=== PATIENT | male | born 1965 | race Caucasian/White ===

== ENCOUNTER 2018-05-04 19:54 | Emergency (ER) | payer BC ==
[~2018-05-04] VITALS: Ht 182.9 cm; Wt 86.2 kg
[2018-05-04] MEDS ORDERED: TRIUMEQ (20:18)
[2018-05-04] MEDS ORDERED: IBUPROFEN600 MG ORAL (21:04)
[2018-05-04 21:39] VITALS: BP 124/79
--- NOTE | 2018-05-04 22:06 | Emergency Room Report ---
History of Present Illness General Chief Complaint: Lower Extremity Injury Source: Patient Present Illness Allergies: Coded Allergies: No Known Allergies (Unverified , 05/04/18) Patient History Reviewed Nursing Documentation: PMH: Agreed; PSxH: Agreed Review of Systems All Other Systems: negative except mentioned in HPI Physical Exam Vital Signs Date Time Temp Pulse Resp B/P (MAP) Pulse Ox O2 Delivery O2 Flow Rate FiO2 05/04/18 20:10 98.4 85 16 122/81 95 Room Air 98.4 General Appearance: well appearing, no apparent distress, alert, GCS 15, non- toxic Head: normocephalic, atraumatic ENT: hearing grossly normal, normal voice Neck: full range of motion, supple Respiratory: no respiratory distress, speaking full sentences Gastrointestinal: normal inspection Musculoskeletal: swelling - right foot dorsum with soft tissue tenderness Neurologic: normal inspection, alert, oriented x3 Psychiatric: mood/affect normal Skin: no rash Medical Decision Making Diagnostic Impression: Primary Impression: Foot sprain ER Course Patient is a 52-year-old male who presented after increased right foot pain and swelling. Differential diagnoses include was was not limited to cellulitis, foreign body, fracture, plantar fasciitis, vascular insufficiency, sprain.X-ray imaging of the right foot 3 views interpreted by me showed normal bony alignment without evident fracture with some soft tissue swelling.The patient is advised to follow up with primary care doctor for repeat xray if pain persist. Patient is advised to return if any worsening condition or if any changes in status that are concerning. This report is dictated with [employer] employee communications software which may occasionally lead to discrepancies related to use of this software. Last Vital Signs Date Time Temp Pulse Resp B/P (MAP) Pulse Ox O2 Delivery O2 Flow Rate FiO2 05/04/18 21:39 98.4 16 124/79 95 Room Air 98.4 05/04/18 20:10 85 Status: improved Disposition: HOME, SELF-CARE Condition: Improved Scripts Ibuprofen* (MOTRIN*) 600 Mg Tablet 600 MG ORAL Q8H PRN for For Pain, #30 TAB 0 Refills Prov: Reynaldo Bender MD 05/04/18 Patient Instructions: Foot Sprain Reynaldo Bender MD May 04, 2018 22:06
--- NOTE | 2018-05-05 09:44 | Diagnostic Imaging Report ---
Indications: Pain, status post fall Technique: 3 views of the right foot Comparison: None Findings: No acute fractures. No dislocations. Joint spaces are preserved. No radiopaque foreign body. Normal mineralization. Impression: No acute process
== END 2018-05-04 21:40 | disposition home or self-care (01) ==
LOC: EMR 20:55
DX: S93.601A Unspecified sprain of right foot, initial encounter (principal); X58.XXXA Exposure to other specified factors, initial encounter; Y93.9 Activity, unspecified; Y92.9 Unspecified place or not applicable
CPT/HCPCS: 99283